=== PATIENT | male | born 1950 | race Caucasian/White ===

== ENCOUNTER 2021-04-13 07:08 | Day surgery (SDC) | payer OTHER ==
[~2021-04-13] VITALS: Ht 162.6 cm; Wt 103.0 kg
[~2021-04-13 07:08] MED LIST: PROPOFOL 10 MG/ML (20ML) VIAL. IV ONE
[2021-04-13 07:25] VITALS: BP 140/63
[2021-04-13] MEDS ORDERED: ASPI-886 PO (07:33)
[2021-04-13] MEDS ORDERED: CETI10TA16 PO (07:33)
[2021-04-13] MEDS ORDERED: BISA-42 PO (07:34)
[2021-04-13] MEDS ORDERED: DULO30CA2 PO (07:34)
[2021-04-13] MEDS ORDERED: IBUP-1007 PO (07:34)
[2021-04-13] MEDS ORDERED: METF10007 PO (07:35)
[2021-04-13] MEDS ORDERED: LISI10TA16 PO (07:35)
[2021-04-13] MEDS ORDERED: IV RINGERS,LACTATED 1000ML 1,000 ML IV SCH (07:45)
--- NOTE | 2021-04-13 08:05 | CONS ---
DATE OF CONSULTATION: 04/13/2021 GASTROINTESTINAL CONSULTATION REFERRING PHYSICIAN: Musa Alfaro MD REASON FOR CONSULTATION: Colorectal screening. HISTORY OF PRESENT ILLNESS: A 71-year-old male whose past medical history is significant for hypertension, BPH, GERD, history of basal cell CA, status post previous resection, seen for screening colon exam. Bowel habits are regular without diarrhea or constipation. There has been no melena and/or hematochezia. Weight and appetite are stable. No family history of polyps or cancer is elicited. He has not undergone previous screening studies and is here today. PAST MEDICAL HISTORY: Hypertension, BPH, GERD, basal cell CA. ALLERGIES: None. MEDICATIONS: Include aspirin, Dulcolax, cetirizine, Cymbalta, ibuprofen, lisinopril, metformin. FAMILY AND SOCIAL HISTORY: Noncontributory. Nondrinker, nonsmoker. REVIEW OF SYSTEMS: HEENT: There is no decreased hearing or visual acuity issues. CARDIAC: There is a history of hypertension. PULMONARY: No shortness of breath, productive cough, asthma. RENAL: No dysuria, frequency, hematuria. DERMATOLOGICAL: He has history of basal cell skin cancer. ENDOCRINE: History of diabetes. GASTROINTESTINAL: See history of present illness. NEUROLOGIC: No stroke, migraine, neuropathy. PSYCHIATRIC: No mood swings, depression, insomnia. PHYSICAL EXAMINATION: GENERAL: Reveals a well-nourished, well-developed male, alert, cooperative, in no acute distress. VITAL SIGNS: Temperature is 97.5, pulse 63, respiratory rate 18. HEENT: Reveals normocephalic, atraumatic head. Pupils and extraocular muscles not tested. Sclerae anicteric. NECK: Supple. LUNGS: Clear. CARDIOVASCULAR: Reveals an S1, S2, without S3, S4 or appreciable murmur. ABDOMEN: Reveals a soft abdomen, normal bowel sounds, without appreciable hepatosplenomegaly. EXTREMITIES: Reveals no cyanosis, clubbing or edema. IMPRESSION: Colorectal screening is warranted at this time. Risks and benefits of the procedure including risk of hemorrhage and perforation were discussed with the patient. He is willing to proceed at this time. I would like to thank Dr. Musa Alfrao for allowing us to consult and participate in the patient's care. YASMANY DR: Jessica TID: [id number] CC: [place] [facility], Musa Alfaro MD
[2021-04-13 08:18] VITALS: BP 146/78
== END 2021-04-13 08:37 | disposition home or self-care (01) ==
LOC: ENDOS 07:08
PROVIDERS: ATTEND Internal Medicine Gastroenterology
DX: Z12.11 Encounter for screening for malignant neoplasm of colon (principal); K64.0 First degree hemorrhoids; K57.30 Diverticulosis of large intestine without perforation or abscess without bleeding; K63.89 Other specified diseases of intestine; K21.9 Gastro-esophageal reflux disease without esophagitis; I10 Essential (primary) hypertension; N40.0 Benign prostatic hyperplasia without lower urinary tract symptoms; E11.9 Type 2 diabetes mellitus without complications; F32.9 Major depressive disorder, single episode, unspecified; Z85.828 Personal history of other malignant neoplasm of skin; Z79.82 Long term (current) use of aspirin; Z79.84 Long term (current) use of oral hypoglycemic drugs; Z79.899 Other long term (current) drug therapy; Z98.890 Other specified postprocedural states; Z88.8 Allergy status to other drugs, medicaments and biological substances
CPT/HCPCS: 45378; J2704